=== PATIENT | male | born 1965 | race Caucasian/White ===

== ENCOUNTER 2021-03-28 21:58 | Emergency (ER) | payer MEDICARE, OTHER ==
[2021-03-28 23:52] LABS: BASOPHIL 0.8 % (0-2); EOSINOPHIL 4.2 % (0-5); HCT 38.1 % (42.0-52.0); HGB 12.5 g/dl (13.2-18.0); LYMPHOCYTE 31.1 % (15-48); MCH 30.6 pg (25.0-31.0); MCHC 32.8 g/dL (32.0-36.0); MCV 93.2 fL (78.0-100.0); MONOCYTE 6.3 % (0-12); MPV 10.2 fL (6.0-9.5); NEUTROPHIL 57.2 % (41-80); NRBC 0; PLT 311 K/uL (150-400); RBC 4.09 M/uL (4.70-6.00); RDW 13.5 % (11.5-14.0); WBC 10.4 K/uL (4.0-10.5)
[2021-03-28 23:56] LABS: INR 0.95 (0.9-1.2)
[2021-03-28 23:57] LABS: PTT 27.2 SECONDS (22.2-34.7)
[2021-03-29 00:04] LABS: ALBUMIN 2.9 g/dL (3.4-5.0); BILIRUBIN - TOTAL 0.2 mg/dL (0.2-1.0); BUN/CREAT RATIO (CALC) 14.3 RATIO; CREATININE 0.84 mg/dL (0.67-1.17); GLOBULIN (CALCULATION) 3.7 g/dL; POTASSIUM 3.5 mmol/L (3.5-5.1); TOTAL PROTEIN 6.6 g/dL (6.4-8.2)
[2021-03-29] MEDS ORDERED: NITROQUIK SL0.4 MG SL (01:11)
== END 2021-03-29 01:30 | disposition home or self-care (01) ==
LOC: FER 21:58
PROVIDERS: Emergency Medicine Emergency Medical Services
DX: R07.89 Other chest pain (principal); I10 Essential (primary) hypertension; F17.200 Nicotine dependence, unspecified, uncomplicated
CPT/HCPCS: 36415; 71045; 80053; 83690; 84484; 85025; 85610; 85730; 93005